=== PATIENT | male | born 1945 | race Caucasian/White ===

== ENCOUNTER 2017-01-19 20:15 | Inpatient (IN) | payer BC, MEDICARE ==
[2017-01-19] MEDS ORDERED: METOCLOPRAMIDE 5 MG/ML 2 ML VIAL IVP STA (21:36)
[2017-01-19] MEDS ORDERED: diphenhydrAMINE 50 MG/ML 1 ML VIAL IVP STA (21:36)
[2017-01-19] MEDS ORDERED: KETOROLAC 30 MG/ML 1 ML VIAL IVP STA (21:36)
[2017-01-19 22:17] LABS: Basophils # (A) 0.1 k/uL (0-0.2); Basophils % (A) 1 %; CH 32.2; CHCM 35.5; Eosinophils # (A) 0.5 k/uL (0-0.7); Eosinophils % (A) 5 %; HCT 40.6 % (39.0-53.0); HDW 2.36; HGB 13.6 gm/dL (13.0-17.5); Luc # (Auto) 0.25; Luc % (Auto) 3; Lymphocytes # (A) 1.2 k/uL (1.0-4.8); Lymphocytes % (A) 13 %; MCH 30.6 pg (25.0-35.0); MCHC 33.6 g/dL (31.0-37.0); Mean Platelet Volume 6.6; Monocytes # (A) 0.8 k/uL (0-1.0); Monocytes % (A) 9 %; Neutrophils # (A) 6.5 k/uL (1.3-7.7); Neutrophils % (A) 69 %; RBC 4.46 m/uL (4.30-5.90); RDW 14.1 % (11.5-15.5); WBC 9.4 k/uL (3.8-10.6); WBC (Perox) 9.42
--- NOTE | 2017-01-19 22:18 | XR ---
EXAMINATION TYPE: XR chest 1V portable DATE OF EXAM: 01/19/2017 10:00 PM COMPARISON: 03/20/2015 INDICATION: Short of breath anxiety TECHNIQUE: Single frontal view of the chest is obtained. FINDINGS: The heart size is normal. The pulmonary vasculature is normal. The lungs are clear. Some hyperinflation and attenuation of the vascular structure suggests COPD. IMPRESSION: 1. Clinical correlation recommended for COPD. Acute pulmonary process not radiographically apparent.
--- NOTE | 2017-01-19 22:34 | ED ---
General Adult HPI - General Chief complaint: Psychiatric Symptoms Stated complaint: anxiety Time Seen by Provider: 01/19/17 21:07 Source: patient Mode of arrival: ambulatory Limitations: no limitations - History of Present Illness Initial comments: Patient is a 71-year-old male presenting with anxiety. Patient states for the past few days he has been having decreased sleep. Patient states his mind is constantly running. Patient admits to drinking 6 beers a day. Last drink was 3 PM. Patient has no history of alcohol withdrawal, ICU stay, or hospitalization for alcohol. Patient states he quit smoking a month ago and is concerned about progressive lung disease from smoking. Patient denies suicidality, homicidality or hallucinations. Patient states he just wants to sleep. Patient with poor nutritional intake per daughter. Daughter states patient does not normally act like this. Patient complaining of mild frontal headache. - Related Data Home Medications Medication Instructions Recorded Confirmed ALPRAZolam [Xanax] 0.25 mg PO HS 01/19/17 01/19/17 Escitalopram [Lexapro] 10 mg PO QAM 01/19/17 01/19/17 Allergies Allergy/AdvReac Type Severity Reaction Status Date / Time No Known Allergies Allergy Verified 01/19/17 21:42 Review of Systems ROS Statement: Those systems with pertinent positive or pertinent negative responses have been documented in the HPI. Constitutional: No fever and no chills. HENT: No congestion, no rhinorrhea and no sore throat. Eyes: No discharge and no redness. Respiratory: No cough and no shortness of breath. Cardiovascular: No chest pain and no palpitations. Gastrointestinal: No nausea, no vomiting, no abdominal pain and no diarrhea. Genitourinary: No dysuria and no hematuria. Musculoskeletal: No back pain and no arthralgias. Skin: No pallor and no rash. Psych: Insomnia. No suicidal, homicidal, hallucinating Neurological: + Fatigue. No dizziness and +headaches. ROS Other: All systems not noted in ROS Statement are negative. Past Medical History Past Medical History: GERD/Reflux History of Any Multi-Drug Resistant Organisms: None Reported Past Surgical History: Appendectomy Additional Past Surgical History / Comment(s): cataracts, colon resection, testicular surgery, Past Psychological History: Anxiety, Depression Smoking Status: Former smoker Past Alcohol Use History: Daily, Heavy Past Drug Use History: None Reported General Exam - General Exam Comments Initial Comments: Constitutional: Frail appearing 71-year-old male in no apparent distress Head: Normocephalic and atraumatic. Eyes: Conjunctivae and EOM are normal. Right eye exhibits no discharge. Left eye exhibits no discharge. No scleral icterus. Neck: Normal range of motion. Neck supple. Cardiovascular: Normal rate and regular rhythm. No murmur heard. Pulmonary/Chest: Effort normal and breath sounds normal. No respiratory distress. No wheezes. Abdominal: Soft. No distension. There is no tenderness. There is no rebound and no guarding. Musculoskeletal: Normal range of motion. No edema or tenderness. Neurological: Patient alert and oriented to person, place, and time. Psych: Flat affect but not suicidal, homicidal or hallucinating Skin: Skin is warm and dry. Not diaphoretic. Nursing notes and vitals reviewed. Limitations: no limitations Course Vital Signs 01/19/17 01/19/17 20:49 23:51 Temperature 98.1 F Pulse Rate 80 85 Respiratory 20 16 Rate Blood Pressure 142/75 146/97 O2 Sat by Pulse 99 98 Oximetry - Reevaluation(s) Reevaluation #1: 01/19/17 23:17 Patient resting completely in bed. Headache resolved. Patient sleeping comfortably with medication. EKG Findings - EKG Comments: EKG Findings:: Rate 73. NSR. No ST-T wave changes. PA internal normal . QRS interval normal. QTc duration normal. Medical Decision Making - Medical Decision Making Patient's a 71-year-old male with tobacco abuse and alcohol abuse presenting with fatigue/anxiety. Patient is a frail 71-year-old male acting depressed but not suicidal. Daughter states patient normally does not act like this. Patient was found to have sodium of 124 and chloride of 92. Normal kidney function. UA unremarkable. CXR showing stigmata of COPD undiagnosed the patient. EKG unremarkable. Patient was resting comfortably in bed. Course of stay stable and requesting hospitalization for further workup of hyponatremia. Denies pain. Discussed physical exam and diagnostic tests with patient. Questions answered and patient is agreeable to staying in the hospital. Discussed H&P and pertinent diagnostic tests with admitting physician who agrees with plan and accepts admission of patient. Admitting physician requests and urine studies - Lab Data Result diagrams: 01/19/17 22:02 01/19/17 22:02 Lab Results 01/19/17 01/19/17 01/19/17 Range/Units 22:02 22:02 22:30 WBC 9.4 (3.8-10.6) k/uL RBC 4.46 (4.30-5.90) m/uL Hgb 13.6 (13.0-17.5) gm/dL Hct 40.6 (39.0-53.0) % MCV 91.0 (80.0-100.0) fL MCH 30.6 (25.0-35.0) pg MCHC 33.6 (31.0-37.0) g/dL RDW 14.1 (11.5-15.5) % Plt Count 421 (150-450) k/uL Neutrophils % 69 % Lymphocytes % 13 % Monocytes % 9 % Eosinophils % 5 % Basophils % 1 % Neutrophils # 6.5 (1.3-7.7) k/uL Lymphocytes # 1.2 (1.0-4.8) k/uL Monocytes # 0.8 (0-1.0) k/uL Eosinophils # 0.5 (0-0.7) k/uL Basophils # 0.1 (0-0.2) k/uL Sodium 124 L (137-145) mmol/L Potassium 4.4 (3.5-5.1) mmol/L Chloride 92 L (98-107) mmol/L Carbon Dioxide 22 (22-30) mmol/L Anion Gap 10 mmol/L BUN 7 L (9-20) mg/dL Creatinine 0.59 L (0.66-1.25) mg/dL Est GFR (MDRD) Af Amer >60 (>60 ml/min/1.73 sqM) Est GFR (MDRD) Non-Af >60 (>60 ml/min/1.73 sqM) Glucose 82 (74-99) mg/dL Calcium 9.8 (8.4-10.2) mg/dL Urine Color Yellow Urine Appearance Clear (Clear) Urine pH 5.5 (5.0-8.0) Ur Specific [place] 1.015 (1.001-1.035) Urine Protein Negative (Negative) Urine Glucose (UA) Negative (Negative) Urine Ketones Negative (Negative) Urine Blood Small H (Negative) Urine Nitrite Negative (Negative) Urine Bilirubin Negative (Negative) Urine Urobilinogen <2.0 (<2.0) mg/dL Ur Leukocyte Esterase Negative (Negative) Urine RBC 2 (0-5) /hpf Urine WBC <1 (0-5) /hpf Ur Squamous Epith Cells <1 (0-4) /hpf Hyaline Casts 1 (0-2) /lpf Urine Mucus Rare H (None) /hpf Urine Opiates Screen Not Detected (NotDetected) Ur Oxycodone Screen Not Detected (NotDetected) Urine Methadone Screen Not Detected (NotDetected) Ur Propoxyphene Screen Not Detected (NotDetected) Ur Barbiturates Screen Not Detected (NotDetected) U Tricyclic Antidepress Not Detected (NotDetected) Ur Phencyclidine Scrn Not Detected (NotDetected) Ur Amphetamines Screen Not Detected (NotDetected) U Methamphetamines Scrn Not Detected (NotDetected) U Benzodiazepines Scrn Not Detected (NotDetected) Urine Cocaine Screen Not Detected (NotDetected) U Marijuana (THC) Screen Not Detected (NotDetected) Disposition Clinical Impression: Hyponatremia, Fatigue Disposition: ADMITTED IP TO THIS [facility] Condition: Good Decision to Admit Reason: Admit from EC
[2017-01-19 22:38] LABS: Anion Gap 10 mmol/L; Blood Urea Nitrogen 7 mg/dL (9-20); Calcium 9.8 mg/dL (8.4-10.2); Carbon Dioxide 22 mmol/L (22-30); Chloride 92 mmol/L (98-107); Glucose 82 mg/dL (74-99); Non-African American GFR(MDRD) >60 (>60 ml/min/1.73 sqM); Potassium 4.4 mmol/L (3.5-5.1); Sodium 124 mmol/L (137-145)
[2017-01-19 22:46] LABS: Appearance,Urine Clear (Clear); Bilirubin,Urine Negative (Negative); Glucose,Urine (UA) Negative (Negative); Ketones,Urine Negative (Negative); Leukocyte Esterase,Urine Negative (Negative); Mucus,Urine Rare /hpf; Nitrite,Urine Negative (Negative); PH, Urine 5.5 (5.0-8.0); Particle Count 2100; Protein,Urine Negative (Negative); RBC,Urine 2 /hpf (0-5); Specific Gravity,Urine 1.015 (1.001-1.035); Squamous Epithelial Cell,Urine <1 /hpf (0-4); UA Billing (MACRO vs. MICRO) MICRO; Urobilinogen,Urine <2.0 mg/dL (<2.0); WBC,Urine <1 /hpf (0-5)
[2017-01-19] MEDS ORDERED: IBUPROFEN 400 MG TAB PO PRN (23:12)
[2017-01-19] MEDS ORDERED: TEMAZEPAM 15 MG CAP PO PRN (23:12)
[2017-01-19] MEDS ORDERED: ACETAMINOPHEN TAB 325 MG TAB PO PRN (23:12)
[2017-01-19] MEDS ORDERED: SODIUM CHLORIDE 0.9% 1,000 ML IV SCH (23:15)
[2017-01-20 01:12] VITALS: BMI 18.0
[2017-01-20] MEDS ORDERED: LORazepam 2 MG/ML SYRINGE IV PRN ×3 (01:45)
[2017-01-20] MEDS ORDERED: SODIUM CHLORIDE 0.9% 1,000 ML IV SCH (02:00)
[2017-01-20] MEDS ORDERED: ESCITALOPRAM 10 MG TAB PO SCH (11:00)
[2017-01-20] MEDS ORDERED: ALPRAZolam 0.5 MG TAB PO PRN (15:17)
--- NOTE | 2017-01-20 19:11 | P.HPIM ---
History of Present Illness H&P Date: 01/20/17 Chief Complaint: Hyponatremia due to SIADH This is a 71-year-old male one of Dr. Mansfield with a previous medical history significant for GERD with esophagitis, COPD, remote tobacco use and dependence, colon polyps, partial colectomy, history of anxiety and depressive disorder, currently patient was seen by our nurse practitioner in the office for anxiety as well as insomnia, that was about a few days ago. Patient was placed on Lexapro 5 mg orally once every day along with the Xanax 0.5 mg at bedtime. Patient ended up coming to the emergency department at [facility] since he has been drinking about 6 beers a daily basis for the past few days trying to put himself back to sleep due to his insomnia and his mind is constantly running, patient was found to have hyponatremia that time. And beside that he did not have any evidence of any acute alcohol withdrawal, patient was admitted to the hospital for evaluation he had a serum osmolality that was low at 259 suggestive of the syndrome of inappropriate ADH secretion however the urine sodium was low at 21 which goes against it, patient was admitted to the hospital for evaluation he did receive normal saline at 100 mL per hour, and he was admitted to the hospital for evaluation, there was an element of hypovolemic hyponatremia along with the SIADH. Review of Systems Constitutional: Reports weakness, Reports weight loss, Denies anorexia, Denies chronic headaches, Denies lethargy, Denies malaise, Denies weight gain Eyes: denies blurred vision, denies bulging eye, denies decreased vision, denies diplopia Ears: deny: decreased hearing Ears, nose, mouth and throat: Denies dysphagia, Denies nose pain, Denies sore throat, Denies vertigo Cardiovascular: Denies chest pain, Denies decreased exercise tolerance, Denies dyspnea on exertion, Denies high blood pressure, Denies phlebitis, Denies rapid heart beat, Denies shortness of breath, Denies syncope Respiratory: Denies congestion, Denies cough, Denies cough with sputum, Denies home oxygen, Denies sleep apnea, Denies snoring, Denies wheezing Gastrointestinal: Denies abdominal pain, Denies bloating, Denies BRBPR, Denies change in bowel habits, Denies heartburn, Denies melena, Denies nausea, Denies vomiting Genitourinary: Denies dysuria, Denies nocturia, Denies polyuria Musculoskeletal: Reports atrophy, Denies frequent falls, Denies gait dysfunction Musculoskeletal: absent: ankle pain, ankle stiffness, ankle swelling, elbow pain , elbow stiffness, elbow swelling, foot pain, foot stiffness, foot swelling, hand pain, hand stiffness, hand swelling, hip pain, hip stiffness, hip swelling , knee pain, knee stiffness, knee swelling, shoulder pain, shoulder stiffness, shoulder swelling, wrist pain, wrist stiffness, wrist swelling Integumentary: Denies pruritus, Denies rash Neurological: Denies numbness, Denies weakness Psychiatric: Reports anxiety, Reports depression, Reports insomnia, Reports irritability, Reports sleep disturbances, Denies sadness/tearfulness, Denies suicidal ideation Endocrine: Denies fatigue, Denies weight change 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" History of Any Multi-Drug Resistant Organisms: None Reported Past Surgical History: Appendectomy Additional Past Surgical History / Comment(s): hollis cataracts removal, colon resection, testicular surgery, heart cath Past Anesthesia/Blood Transfusion Reactions: No Reported Reaction Additional Past Anesthesia/Blood Transfusion Reaction / Comment(s): never had a blood transfusion Past Psychological History: Anxiety, Depression Smoking Status: Former smoker (Patient uses we will pack every day his smoked since he was 16-year-old he quit in January of last year.) Past Alcohol Use History: Daily (Patient drinks about 6 beers on a daily basis.) , Heavy Additional Past Alcohol Use History / Comment(s): pt states he drinks 4 to 6 beers a day with no hx of withdrawl Past Drug Use History: None Reported - Past Family History Mother Family Medical History: Coronary Artery Disease (CAD), Diabetes Mellitus ( Mother at age of 88 from the diabetes competition also she had angioplasty and CAD.) Additional Family Medical History / Comment(s): angioplasty Father Family Medical History: Cancer (Father at age of 90 from prostate cancer he also had a history of CAD post-PCI and also had a history of colon cancer post resection.), Coronary Artery Disease (CAD), Myocardial Infarction (NH) Additional Family Medical History / Comment(s): prostate cancer, heart cath with stent Brother(s) Family Medical History: No Reported History (Patient has one brother no major medical problems) Daughter(s) Family Medical History: No Reported History (Patient has 2 daughters no major medical problems) Son(s) Family Medical History: No Reported History (Patient has 3 sons one of them is a stepson and 2 biological sons no major medical problems) Medications and Allergies Home Medications Medication Instructions Recorded Confirmed Type ALPRAZolam [Xanax] 0.25 mg PO HS 01/19/17 01/19/17 History Escitalopram [Lexapro] 10 mg PO QAM 01/19/17 01/19/17 History Allergies Allergy/AdvReac Type Severity Reaction Status Date / Time No Known Allergies Allergy Verified 01/19/17 21:42 Physical Exam Vitals: Vital Signs Temp Pulse Pulse Resp BP BP Pulse Ox 01/20/17 07:00 99.0 F 85 16 137/80 96 01/20/17 01:30 16 01/19/17 23:51 85 16 146/97 98 Intake and Output 01/19/17 01/20/17 01/20/17 22:59 06:59 14:59 Other: Voiding Method Toilet Urinal # Voids 2 Weight 56.971 kg 56.971 kg Patient Weight 01/21/17 06:59 Weight 56.971 kg - Constitutional General appearance: no acute distress - EENT Eyes: anicteric sclerae, EOMI, PERRLA, no ptosis, no scleral icterus, normal appearance ENT: hearing grossly normal, normal oropharynx, no thrush Ears: bilateral: normal - Neck Neck: no lymphadenopathy, normal ROM, no rigidity, no stridor, no thyromegaly Carotids: bilateral: upstroke normal Thyroid: bilateral: normal size - Respiratory Respiratory: bilateral: diminished, rhonchi, prolonged expiration, negative: dullness, rales, wheezing - Cardiovascular Rhythm: regular Heart sounds: normal: S1, S2 Abnormal Heart Sounds: systolic murmur, no rub, no S3 Gallop, no S4 Gallop, no click - Gastrointestinal General gastrointestinal: normal bowel sounds, soft, no splenomegaly, no tenderness, no umbilical hernia, no ventral hernia - Integumentary Integumentary: normal, normal turgor - Neurologic Neurologic: CNII-XII intact - Musculoskeletal Musculoskeletal: generalized weakness, strength equal bilaterally - Psychiatric Psychiatric: A&O x's 3, no appropriate affect, intact judgment & insight Results CBC & Chem 7: 01/19/17 22:02 01/19/17 22:02 Thrombosis Risk Factor Assmnt - DVT/VTE Prophylaxis DVT/VTE Prophylaxis: Pharmacologic Prophylaxis ordered, Mechanical Prophylaxis ordered - Choose All That Apply Any of the Below Risk Factors Present?: Yes Each Factor Represents 1 point: Abnormal pulmonary function (COPD) Other Risk Factors: Yes Each Risk Factor Represents 2 Points: Age 61-74 years Each Risk Factor Represents 3 Points: Family history of DVT/PE Thrombosis Risk Factor Assessment Total Risk Factor Score: 6 Thrombosis Risk Factor Assessment Level: High Risk Assessment and Plan Plan: Assessment and plan: 1. 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 His serum osmolality was low patient will be given normal saline 100 mL an hour for 8 hours then discontinue then we'll Hep- Lock his IV and place the patient on fluid restriction 1000 mL in 24 hours, his urine sodium is not compatible with SIADH however the patient does have an element of hypovolemic hyponatremia to start with, this could be also related to the Lexapro as SSRI have a tendency to develop SIADH, we will monitor the patient very closely we'll keep Lexapro on board for now and check the electrolytes . 2. GERD. Continue patient on Protonix 40 mg orally once every day. 3. Anxiety disorder continue Lexapro 5 mg orally once every day. 4. Depressive disorder continue Lexapro 5 mg orally once every day, add Remeron 7.5 mg bedtime. 5. Chronic alcohol use and dependence. Patient was counseled about abstinence from alcohol and he needed follow-up with the psychiatrist as an outpatient. 6. COPD. Abstinence from smoking patient may benefit from pulmonary function test as an outpatient. 7. Colon polyps post partial colectomy. 8. DVT prophylaxis. Heparin 5000 units subcutaneously every 12 hours. 9. GI prophylaxis. Continue patient on PPI. 10. Full code. 11. Admit to inpatient. Estimate a length of stay 2 midnights.
[2017-01-20] MEDS: HEPARIN SODIUM,PORCINE 5,000 UNIT/ML 1 ML VIAL SQ SCH (20:37)
[2017-01-20] MEDS ORDERED: MIRTAZAPINE 45 MG TABLET PO SCH (21:00)
[2017-01-20] MEDS ORDERED: MIRTAZAPINE 15 MG TAB PO SCH (21:00)
[2017-01-21] MEDS ORDERED: PANTOPRAZOLE 40 MG TABLET PO SCH (07:30)
[2017-01-21 07:35] VITALS: BP 175/88; PULSE 84; RESP 16; TEMP 98
[2017-01-21] MEDS: HEPARIN SODIUM,PORCINE 5,000 UNIT/ML 1 ML VIAL SQ SCH (08:16)
[2017-01-21 08:38] LABS: Basophils # (A) 0.1 k/uL (0-0.2); Basophils % (A) 1 %; CH 31.6; CHCM 34.3; Eosinophils # (A) 0.3 k/uL (0-0.7); Eosinophils % (A) 7 %; HCT 40.7 % (39.0-53.0); HDW 2.31; HGB 13.8 gm/dL (13.0-17.5); Luc # (Auto) 0.19; Luc % (Auto) 4; Lymphocytes # (A) 1.2 k/uL (1.0-4.8); Lymphocytes % (A) 23 %; MCH 31.4 pg (25.0-35.0); MCHC 33.9 g/dL (31.0-37.0); MCV 92.6 fL (80.0-100.0); Mean Platelet Volume 6.6; Monocytes # (A) 0.6 k/uL (0-1.0); Monocytes % (A) 11 %; Neutrophils # (A) 2.7 k/uL (1.3-7.7); Neutrophils % (A) 54 %; RDW 14.1 % (11.5-15.5); WBC 5.1 k/uL (3.8-10.6); WBC (Perox) 5.16
[2017-01-21 08:57] LABS: ALT 26 U/L (21-72); AST 24 U/L (17-59); Alkaline Phosphatase 52 U/L (38-126); Anion Gap 8 mmol/L; Blood Urea Nitrogen 9 mg/dL (9-20); Calcium 9.4 mg/dL (8.4-10.2); Carbon Dioxide 27 mmol/L (22-30); Chloride 96 mmol/L (98-107); Glucose 84 mg/dL (74-99); Non-African American GFR(MDRD) >60 (>60 ml/min/1.73 sqM); Potassium 4.2 mmol/L (3.5-5.1); Sodium 131 mmol/L (137-145); Total Protein 6.7 g/dL (6.3-8.2)
--- NOTE | 2017-01-21 13:57 | P.DS ---
Providers Date of admission: 01/19/17 23:12 Expected date of discharge: 01/21/17 Attending physician: Miles Quinteros Primary care physician: [facility] Hospital Course: This is a 71-year-old male one of Dr. Mansfield with a previous medical history significant for GERD with esophagitis, COPD, remote tobacco use and dependence, colon polyps, partial colectomy, history of anxiety and depressive disorder, currently patient was seen by our nurse practitioner in the office for anxiety as well as insomnia, that was about a few days ago. Patient was placed on Lexapro 5 mg orally once every day along with the Xanax 0.5 mg at bedtime. Patient ended up coming to the emergency department at [facility] since he has been drinking about 6 beers a daily basis for the past few days trying to put himself back to sleep due to his insomnia and his mind is constantly running, patient was found to have hyponatremia that time. And beside that he did not have any evidence of any acute alcohol withdrawal, patient was admitted to the hospital for evaluation he had a serum osmolality that was low at 259 suggestive of the syndrome of inappropriate ADH secretion however the urine sodium was low at 21 which goes against it, patient was admitted to the hospital for evaluation he did receive normal saline at 100 mL per hour, and he was admitted to the hospital for evaluation, there was an element of hypovolemic hyponatremia along with the SIADH. 01/21: Sodium is improved to 131 and chloride 96. Patient states he slept well last night with Remeron. Patient will be provided with a prescription for Remeron and be discharged home today in stable condition. Patient has been instructed to continue Lexapro and takes an excellent if needed. Discharge diagnoses: 1. 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 2. GERD. 3. Anxiety disorder, generalized 4. Depressive disorder, recurrent 5. Chronic alcohol use and dependence. 6. COPD. 7. Colon polyps post partial colectomy. Discharge plan: Return home Impression and plan of care have been directed as dictated by the signing physician. Patsy Griffin nurse practitioner acting as scribe for signing physician. Patient Condition at Discharge: Good Plan - Discharge Summary New Discharge Prescriptions: Mirtazapine [Remeron] 15 mg PO HS #30 tab Discharge Medication List ALPRAZolam [Xanax] 0.25 mg PO HS 01/19/17 [History] Escitalopram [Lexapro] 10 mg PO QAM 01/19/17 [History] Mirtazapine [Remeron] 15 mg PO HS #30 tab 01/21/17 [Rx] Follow up Appointment(s)/Referral(s): Chet Mansfield MD [Primary Care Provider] - 01/28/17 9:00 am (With Arline GRACE) Patient Instructions/Handouts: Hyponatremia (DC) Activity/Diet/Wound Care/Special Instructions: Regular diet. Discharge Disposition: HOME SELF-CARE
== END 2017-01-21 11:02 | disposition home or self-care (01) | DRG 644 ==
LOC: EC 20:15 → 4MS4W 23:12
PROVIDERS: ADMIT Internal Medicine; ATTEND Internal Medicine
DX: E22.2 Syndrome of inappropriate secretion of antidiuretic hormone (principal); F33.9 Major depressive disorder, recurrent, unspecified; J44.9 Chronic obstructive pulmonary disease, unspecified; R54 Age-related physical debility; E86.1 Hypovolemia; F41.1 Generalized anxiety disorder; K21.0 Gastro-esophageal reflux disease with esophagitis; F10.20 Alcohol dependence, uncomplicated; T43.225A Adverse effect of selective serotonin reuptake inhibitors, initial encounter; E78.5 Hyperlipidemia, unspecified; R51 Headache; M19.90 Unspecified osteoarthritis, unspecified site; G47.00 Insomnia, unspecified; Z79.899 Other long term (current) drug therapy; Z83.3 Family history of diabetes mellitus; Z82.49 Family history of ischemic heart disease and other diseases of the circulatory system; Z86.010 Personal history of colon polyps; Z80.42 Family history of malignant neoplasm of prostate; Z71.3 Dietary counseling and surveillance; Z71.6 Tobacco abuse counseling; Z90.49 Acquired absence of other specified parts of digestive tract; Z87.891 Personal history of nicotine dependence; Z98.42 Cataract extraction status, left eye; Z71.41 Alcohol abuse counseling and surveillance of alcoholic; Z98.41 Cataract extraction status, right eye; Z80.0 Family history of malignant neoplasm of digestive organs; Y90.0 Blood alcohol level of less than 20 mg/100 ml
CPT/HCPCS: 36415; 71010; 80048; 80053; 80306; 80320; 81001; 82075; 83930; 83935; 84300; 85025; 93005; 96361; 96374; 96375; 96376; 99285

== ENCOUNTER 2021-10-16 10:42 | Emergency (ER) | payer MEDICARE ==
[2021-10-16 10:51] VITALS: TEMP 98.4
[2021-10-16] MEDS ORDERED: GLUCAGON 1 MG/ML VIAL IVP STA ×2 (11:18→12:27)
[2021-10-16] MEDS ORDERED: DIAZEPAM 5 MG/ML 2 ML INJ IVP STA (11:20)
[2021-10-16] MEDS ORDERED: METOCLOPRAMIDE 5 MG/ML 2 ML VIAL IVP STA (11:22)
[2021-10-16] MEDS ORDERED: SODIUM CHLORIDE 0.9% 1,000 ML IV STA (11:22)
[2021-10-16] MEDS ORDERED: NITROGLYCERIN SL TABS 0.4 MG TAB SUBLINGUAL STA ×2 (11:22→12:27)
--- NOTE | 2021-10-16 11:49 | ED ---
General Adult HPI - General Chief complaint: Recheck/Abnormal Lab/Rx Stated complaint: object stuck in esophagus Time Seen by Provider: 10/16/21 10:59 Source: patient Mode of arrival: ambulatory Limitations: no limitations - History of Present Illness Initial comments: This 76-year-old male presents emergency Department with "pook loin stuck in my esophagus since 7 PM last night." Patient states he has experienced this multiple times in this past and has been seen in the hospital twice before for the same issue. Patient states he has tried to keep down water however, it just comes right back up. Patient states in the he had a "zipper" placed at his distal esophagus. Patient denies any chest pain, shortness of breath, trouble swallowing spit, abdominal pain, fever, change in vision, change in bowel or bladder. - Related Data Home Medications Medication Instructions Recorded Confirmed Escitalopram [Lexapro] 10 mg PO DAILY 01/19/17 10/16/21 Previous Rx's Medication Instructions Recorded Mirtazapine [Remeron] 15 mg PO HS #30 tab 01/21/17 Allergies Allergy/AdvReac Type Severity Reaction Status Date / Time No Known Allergies Allergy Verified 10/16/21 12:08 Review of Systems ROS Statement: Those systems with pertinent positive or pertinent negative responses have been documented in the HPI. ROS Other: All systems not noted in ROS Statement are negative. 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" History of Any Multi-Drug Resistant Organisms: None Reported Past Surgical History: Appendectomy Additional Past Surgical History / Comment(s): hollis cataracts removal, colon resection, testicular surgery, heart cath Past Anesthesia/Blood Transfusion Reactions: No Reported Reaction Additional Past Anesthesia/Blood Transfusion Reaction / Comment(s): never had a blood transfusion Past Psychological History: Anxiety, Depression Smoking Status: Never smoker Past Alcohol Use History: Daily, Heavy Past Drug Use History: None Reported - Past Family History Mother Family Medical History: Coronary Artery Disease (CAD), Diabetes Mellitus (Mother at age of 88 from the diabetes competition also she had angioplasty and CAD.) Additional Family Medical History / Comment(s): angioplasty Father Family Medical History: Cancer (Father at age of 90 from prostate cancer he also had a history of CAD post-PCI and also had a history of colon cancer post resection.), Coronary Artery Disease (CAD), Myocardial Infarction (SC) Additional Family Medical History / Comment(s): prostate cancer, heart cath with stent Brother(s) Family Medical History: No Reported History (Patient has one brother no major medical problems) Daughter(s) Family Medical History: No Reported History (Patient has 2 daughters no major medical problems) Son(s) Family Medical History: No Reported History (Patient has 3 sons one of them is a stepson and 2 biological sons no major medical problems) General Exam Limitations: no limitations General appearance: alert, in no apparent distress Head exam: Present: atraumatic, normocephalic, normal inspection Eye exam: Present: normal appearance, EOMI ENT exam: Present: normal exam, mucous membranes moist, other (Patient points to his esophagus just above sternum and states this is where he feels the food stuck) Neck exam: Present: normal inspection, full ROM. Absent: tenderness, meningismus, lymphadenopathy Respiratory exam: Present: normal lung sounds bilaterally. Absent: respiratory distress, wheezes, rales, rhonchi, stridor Cardiovascular Exam: Present: regular rate, normal rhythm, normal heart sounds. Absent: systolic murmur, diastolic murmur, rubs, gallop, clicks GI/Abdominal exam: Present: soft, normal bowel sounds. Absent: distended, tenderness, guarding, rebound, rigid Extremities exam: Present: normal inspection, full ROM, normal capillary refill. Absent: tenderness, pedal edema, joint swelling, calf tenderness Back exam: Present: full ROM Neurological exam: Present: alert, oriented X3, CN II-XII intact Psychiatric exam: Present: normal affect, normal mood Skin exam: Present: warm, dry, intact, normal color. Absent: rash Course Vital Signs 10/16/21 10/16/21 10/16/21 10:49 11:58 12:44 Temperature 98.4 F Pulse Rate 105 H 90 92 Respiratory 20 18 18 Rate Blood Pressure 124/78 148/80 117/79 O2 Sat by Pulse 98 98 98 Oximetry Medical Decision Making - Medical Decision Making This 76-year-old male presents emergency Department with food bolus stuck in his esophagus since 7 PM last night. Vital signs stable. Valium and Reglan given with 1 L of normal saline. After half of the normal saline had been administered, 1 mg of glucagon IVP and 1 sublingual nitro given with mary jane danny. No food bolus relief, but patient did spit up mary jane danny. One more mg glucagon given IVP with sublingual nitro without food bolus relief. Spoke with who told me to send patient to the hospital. Spoke with at [facility] who accepted the patient and told me to send patient to him and he would have food bolus removed today by GI. Patient and his daughter requested for her to drive herself. Patient sent to [facility] for food bolus removal. Strict return precautions were discussed. Patient and daughter verbally agreed to plan. Case discussed with Dr. Stover. Disposition Clinical Impression: Food impaction of esophagus Disposition: OTHER INSTITUTION NOT DEFINED Condition: Stable Is patient prescribed a controlled substance at d/c from ED?: No Referrals: Chet Mansfield MD [Primary Care Provider] - 1-2 days Time of Disposition: 13:12 - Out of Hospital Transfer - Req. Specs Out of Hospital Transfer - Requested Specifics: Other Emergency Center ([facility]- Dr. Calderon)
[2021-10-16 11:59] VITALS: RESP 18
[2021-10-16 12:46] VITALS: BP 117/79; PULSE 92
== END 2021-10-16 13:20 | disposition other institution (70) ==
LOC: EC 10:42
DX: T18.128A Food in esophagus causing other injury, initial encounter (principal); K21.9 Gastro-esophageal reflux disease without esophagitis; E78.5 Hyperlipidemia, unspecified; M19.90 Unspecified osteoarthritis, unspecified site; F41.9 Anxiety disorder, unspecified; F32.A Depression, unspecified; Z90.49 Acquired absence of other specified parts of digestive tract; X58.XXXA Exposure to other specified factors, initial encounter
CPT/HCPCS: 99284; 96374; 96375 ×2; 96376; J1610; J2765; J3360

== ENCOUNTER → 2024-08-15 | Day surgery (SDC) | payer MEDICARE ==
[~2024-08-15] MED LIST: LIDOCAINE 1% INJ 10MG/ML (20 ML MDV) ONE; PROPOFOL 10 MG/ML 20 ML VIAL IV ONE
[2024-08-15 13:26] VITALS: TEMP 97.2
[2024-08-15] MEDS: IV FLUID CONTINUATION 1,000 ML IV ONE (13:30)
[2024-08-15] MEDS: LACTATED RINGERS 1,000 ML IV SCH (13:30)
[2024-08-15] MEDS: LIDOCAINE 1% (10MG/ML) FOR IV START INTRADERMA STA (13:30)
--- NOTE | 2024-08-15 13:57 | P.PCN ---
Date of Procedure: 08/15/24 Procedure(s) Performed: BRIEF HISTORY: Patient is a 78-year-old, pleasant, white male scheduled an upper endoscopy as above evaluation of intermittent dysphagia to solids for the last 20 years duration. He had an episode of food impaction about a month ago and underwent an EGD admitted in the hospital a month ago. PROCEDURE PERFORMED: Esophagogastroduodenoscopy with dilation. PREOPERATIVE DIAGNOSIS: Intermittent dysphagia to solids. IV sedation per anesthesia. PROCEDURE: After informed consent was obtained, the patient was brought into the endoscopy unit. IV sedation was administered by Anesthesia under continuous monitoring. Initially the Olympus GIF-140 video endoscope was inserted into the mouth. Esophagus intubated without any difficulty. It was gradually advanced into the distal esophagus. There was a tight stricture identified and the scope could not be advanced through the stricture. The stricture was located at 40 cm from the incisors and appeared benign in nature. At this time balloon dilation was performed using 10 to 12 mm TTS balloon. Initially was dilated to 10 mm and subsequently to 11 mm for 60 seconds. Following this there was some oozing identified. I was able to advance the scope through the stricture into the stomach and duodenum and carefully examined. The bulb and the second part of the duodenum appeared normal. The scope at this time was withdrawn to the stomach, adequately insufflated with air, and upon careful examination, mucosa of the antrum, body, cardia and the fundus appeared normal. The scope was then withdrawn into the esophagus. Mild hiatal hernia noted. The GE junction was located at 43 cm from the incisors. It was mucosal tear noted at the site of dilation of the distal esophageal stricture. No erosions or ulcerations seen. The rest of the esophagus appeared normal. There were no erosions or ulcerations seen and the patient tolerated the procedure well. IMPRESSION: 1. Tight benign appearing distal esophageal stricture status post balloon dilation using 10 and 11 mm TTS balloon 2. Small hiatal hernia. RECOMMENDATIONS: The findings of this examination were discussed with the patient as well as his family. He was advised to be on clear liquids for 2 hours. Start on omeprazole 20 mg daily and follow antireflux measures. Follow- up in the office in 1 month..
[2024-08-15 14:17] VITALS: BP 148/94; PULSE 74; RESP 14
== END ==
LOC: ORWHC2ENDO 12:26
PROVIDERS: ATTEND Internal Medicine Gastroenterology
DX: K22.2 Esophageal obstruction (principal); K44.9 Diaphragmatic hernia without obstruction or gangrene; J44.9 Chronic obstructive pulmonary disease, unspecified; F41.9 Anxiety disorder, unspecified; K21.9 Gastro-esophageal reflux disease without esophagitis; F10.90 Alcohol use, unspecified, uncomplicated; Z79.899 Other long term (current) drug therapy; Z90.49 Acquired absence of other specified parts of digestive tract
CPT/HCPCS: 43249; J2003; J2704; C1726